=== PATIENT | male | born 1965 | race African-American/Black ===

== ENCOUNTER 2017-05-07 07:54 | Emergency (ER) | payer BC ==
[~2017-05-07] VITALS: Ht 182.9 cm; Wt 92.0 kg
[2017-05-07] MEDS ORDERED: METF500T4 PO (08:03)
[2017-05-07 10:07] VITALS: BP 127/89
== END 2017-05-07 10:08 | disposition home or self-care (01) ==
LOC: ER 07:54
DX: M84.375A Stress fracture, left foot, initial encounter for fracture (principal); E11.9 Type 2 diabetes mellitus without complications; X58.XXXA Exposure to other specified factors, initial encounter; Y93.89 Activity, other specified; Y92.89 Other specified places as the place of occurrence of the external cause; Y99.8 Other external cause status
CPT/HCPCS: 29515; 73610; 73630; 99284; Z7610